=== PATIENT | female | born 1995 | race Two or more races ===

== ENCOUNTER 2024-08-16 11:45 | Emergency (ER) | payer OTHER ==
[~2024-08-16] VITALS: Ht 152.4 cm; Wt 65.8 kg
[2024-08-16] MEDS ORDERED: ACETAMINOPHEN 500 MG GEL..CAP PO ONE ×2 (13:12→13:15)
[2024-08-16] MEDS ORDERED: METOCLOPRAMIDE HCL 5 MG/ML VIAL ONE (13:13)
[2024-08-16] MEDS ORDERED: 0.9 % SODIUM CHLORIDE 1,000 ML IV ONE (13:15)
[2024-08-16] MEDS ORDERED: METOCLOPRAMIDE HCL 5 MG/ML VIAL IM ONE (13:15)
[2024-08-16 14:03] LABS: HEMATOCRIT 35.9 % (36.0-45.00); HEMOGLOBIN 12.5 g/dL (12.0-15.00); MEAN CELL VOLUME 85.8 fL (80.00-100.00); MEAN CORPUSCULAR HEMOGLOBIN 29.8 pg (27.00-32.0); MEAN CORPUSCULAR HGB CONC 34.8 g/dl (32.0-36.0); PLATELET COUNT 286 K/uL (150-450); RED BLOOD COUNT 4.18 M/uL (4.00-6.00); RED CELL DISTRIBUTION WIDTH 12.6 % (11.5-14.5)
[2024-08-16 14:42] LABS: ALBUMIN 3.6 gm/dL (3.4-5.0); BILIRUBIN TOTAL 0.54 mg/dL (0.3-1.2); CALCIUM 9.3 mg/dL (8.5-10.1); CREATININE SERUM 0.7 mg/dL (0.55-1.02); GFR 98.25; GLOBULINA 4.7 G/DL (2.4-3.5); POTASSIUM 3.81 mEq/L (3.5-5.1); TOTAL PROTEIN 8.3 gm/dL (6.4-8.2)
== END 2024-08-16 15:18 | disposition home or self-care (01) ==
LOC: ER 11:47
PROVIDERS: General Practice
DX: A09 Infectious gastroenteritis and colitis, unspecified (principal); Z20.822 Contact with and (suspected) exposure to COVID-19